=== PATIENT | female | born 1955 | race Hispanic/Latino ===

== ENCOUNTER 2022-10-20 10:47 | Observation (INO) | payer OTHER ==
--- NOTE | 2022-10-20 11:59 | RAD REPORT ---
EXAM DESCRIPTION: CT - Head Brain Wo Cont - 10/20/2022 11:23 am CLINICAL HISTORY: Left hand numbness COMPARISON: None TECHNIQUE: Computed axial tomography of the head was obtained. IV contrast was not requested. All CT scans are performed using dose optimization technique as appropriate and may include automated exposure control or mA/KV adjustment according to patient size. FINDINGS: An intracranial bleed is not seen . The ventricles are normal in caliber. No extra-axial fluid collection is noted. Marked low-density areas within periventricular, deep and subcortical white matter Small low-density area left basal ganglia Fluid within the sinuses/ mastoids is not seen. IMPRESSION: Marked low-density areas within periventricular, deep and subcortical white matter bilat erally. This could be secondary to a demyelinating process or ischemic changes secondary to small ves brianna disease. Small low-density area left basal ganglia. This may represent a lacunar infarct of indeterminate age It is recommended that the patient have an MRI of the brain with contrast to further evaluate these f indings
[2022-10-20 13:26] LABS: Absolute Lymphocytes (CBC) 2.3 K/uL (0.7-4.9); Hematocrit 40.8 % (36.0-45.0); Lymphocytes % 31.5 % (15.3-44.8); MCV 81.2 fL (80-100); MPV 7.9 fL (7.6-11.3); RBC Red Blood Cell Count 5.03 M/uL (3.86-4.86)
--- NOTE | 2022-10-20 13:39 | EDPHYS ---
Physician Documentation [facility] Name: Nicol Max Age: 66 yrs Sex: Female : 1955 Arrival Date: 10/20/2022 Time: 10:49 Bed 28 Private MD: Andrae Lr F; Gabino Real H ED Physician Kesha Rodriguez HPI: 10/20 11:10 This 66 yrs old Female presents to ER via Ambulatory with complaints of sd2 Numbness. 11:10 66 yo F presents with CC of L hand paresthesia. She reports she initially started with sd2 a pins and needles sensation to her left hand at the 4th and 5th digits that started Tuesday while watching Netflix. She reports it has spread to include the entire palmar surface of her hand but is not affecting the dorsal aspect. Denies any known injury, trauma or repetitive overuse injuries. Denies CP or SOB. She is left-handed but has not experienced this previously. No weakness. Pt was sent by Dr. Real, her PCP to Neurology, Dr. Lr, whose office recommended she come to the ER to rule out a stroke and if discharged, they would see her in clinic before 4PM today for follow up.. Historical: - Allergies: 10:54 No Known Allergies; ll1 - PMHx: 10:54 Hypertensive disorder; ll1 - PSHx: 10:54 tubal ligation; ll1 - Immunization history:: Client reports receiving the 2nd dose of the Covid vaccine. - Social history:: Smoking status: Patient denies any tobacco usage or history of. ROS: 11:10 Constitutional: Negative for fever, chills, and weight loss, Eyes: Negative for injury, sd2 pain, redness, and discharge, Cardiovascular: Negative for chest pain, palpitations, and edema, Respiratory: Negative for shortness of breath, cough, wheezing. Abdomen/GI: Negative for abdominal pain, nausea, vomiting, diarrhea. MS/Extremity: Negative for injury and deformity, Skin: Negative for injury, rash, and discoloration, Neuro: Negative for headache, numbness and positive for tingling. Exam: 11:10 Constitutional: This is a well developed, well nourished patient who is awake, alert, sd2 and in no acute distress. Head/Face: Normocephalic, atraumatic. Eyes: EOMI, normal conjunctiva bilaterally Chest/axilla: Normal chest wall appearance and motion. Nontender with no deformity. Cardiovascular: Regular rate and rhythm with a normal S1 and S2. No gallops, murmurs, or rubs. 2+ distal pulses. Respiratory: Lungs have equal breath sounds bilaterally, clear to auscultation and percussion. No rales, rhonchi or wheezes noted. No increased work of breathing, no retractions or nasal flaring. Abdomen/GI: Soft, non-tender, with normal bowel sounds. No guarding or rebound. No evidence of tenderness throughout. Skin: Warm, dry with normal turgor. Normal color with no rashes, no lesions, and no evidence of cellulitis. MS/ Extremity: Pulses equal, no cyanosis. Neurovascular intact. Full, normal range of motion. Ambulatory without difficulty. Neuro: Awake and alert, GCS 15, oriented to person, place, time, and situation. Cranial nerves II-XII grossly intact. Motor strength 5/5 in all extremities. Sensory grossly intact. Normal gait. Psych: Awake, alert, with orientation to person, place and time. Behavior, mood, and affect are within normal limits. Vital Signs: 10:55 BP 157 / 95; Pulse 85; Resp 16; Temp 97.4; Pulse Ox 98% ; Weight 90.72 kg; Height 5 ft. ll1 6 in. (167.64 cm); Pain 0/10; 13:55 BP 109 / 78; Pulse 72; Resp 16; Pulse Ox 98% on R/A; eh3 14:54 BP 126 / 79; Pulse 75; Resp 16; Pulse Ox 99% on R/A; eh3 15:55 BP 118 / 65; Pulse 76; Resp 15; Pulse Ox 98% on R/A; eh3 16:55 BP 116 / 93; Pulse 75; Resp 16; Pulse Ox 98% on R/A; eh3 18:00 BP 139 / 85; Pulse 77; Resp 18; Pulse Ox 99% on R/A; eh3 19:00 BP 139 / 91; Pulse 78; Resp 20; Pulse Ox 98% on R/A; eh3 10:55 Body Mass Index 32.28 (90.72 kg, 167.64 cm) ll1 MDM: 11:10 Differential diagnosis: Paresthesia, peripheral neuropathy, electrolyte abnormality, sd2 doubt CVA among others. Data reviewed: vital signs, nurses notes. 13:01 Patient medically screened. sd2 13:25 Data reviewed: radiologic studies. Transition of care: After a detail discussion of the sd2 patient's case, care is transferred to Akilah Charlton [facility] ED course: Labs pending. CT abnormal. Pt will need admission and further stroke workup. Care of patient signed over to Akilah Charlton NP, with plan for admission following labs.. 13:45 Physician consultation: Andrae Lr MD was contacted at 13:30, regarding consult, snw would like further tests performed, MRI, Without and with contrast. 13:46 Physician consultation: Mitch Ibanez MD was contacted at 13:46, regarding admission, snw to the telemetry unit. 13:50 Special discussion: pt relays records from [place], + covid in Dec 12. Flew to [place] in snw Aug, Returned here in Sep. Flew to [place] to see her Daughter. Pt had some numbness, tingling to left fourth and fifth fingers, now left hand, s/s became constant. Pt flew home from [place] yesterday to see PCP, Neuro here in town.. 10/20 11:10 Order name: CBC with Diff; Complete Time: 13:32 sd2 10/20 11:10 Order name: CMP; Complete Time: 13:50 sd2 10/20 11:10 Order name: Magnesium; Complete Time: 13:50 sd2 10/20 11:10 Order name: Troponin High Sensitivity; Complete Time: 13:50 sd2 10/20 15:23 Order name: SARS-COV-2 Antigen Rapid bd 10/20 16:11 Order name: SARS-COV-2 Antigen Rapid; Complete Time: 16:18 EDMS 10/20 11:10 Order name: EKG - Nurse/Tech; Complete Time: 14:04 sd2 10/20 11:10 Order name: CT Head Brain wo Cont; Complete Time: 13:00 sd2 10/20 19:26 Order name: Phosphorus; Complete Time: 19:27 EDMS 10/20 19:26 Order name: NT PRO-BNP; Complete Time: 19:27 EDMS 10/20 19:26 Order name: T4 Free; Complete Time: 19:27 EDMS 10/20 19:26 Order name: Magnesium; Complete Time: 19: EDMS 10/20 19:26 Order name: Thyroid Stimulating Hormone; Complete Time: 19: EDMS 10/20 21:54 Order name: Urinalysis; Complete Time: 00:12 EDMS EC:59 Rate is 73 beats/min. Rhythm is regular. QRS interval is prolonged. T waves are snw Inverted in lead aVL. ST Segment is elevated in lead aVR. Clinical impression: NSR w/ Non-specific ST/T Changes. Administered Medications: No medications were administered Disposition Summary: 10/20/22 13:39 Hospitalization Ordered Hospitalization Status: Observation snw Provider: Mitch Ibanez snw Location: Telemetry/MedSurg (observation) snw Condition: Stable snw Problem: new snw Symptoms: are unchanged snw Bed/Room Type: Standard snw Room Assignment: 222(10/20/22 21:33) cg Diagnosis - FOCAL NEUROLOGICAL CHANGES snw Forms: - Medication Reconciliation Form snw - SBAR form snw Signatures: Dispatcher [employer] EDID Akilah Charlton, NORBERT-C CHUTE LOADER-Csnw Martine Coleman RN RN cg [facility] RN RN 1 Kesha Rodriguez MD MD sd2 Corrections: (The following items were deleted from the chart) 11:13 11:10 66 yo F presents with CC of L hand paresthesia. She reports she initially started sd2 with a pins and needles sensation to her left hand at the 4th and 5th digits that started Tuesday while watching Netflix. She reports it has spread to include the entire palmar surface of her hand but is not affecting the dorsal aspect. Denies any known injury, trauma or repetitive overuse injuries. Denies CP or SOB. She is left-handed but has not experienced this previously. No weakness.. sd2 21:33 13:39 snw cg
--- NOTE | 2022-10-20 13:39 | ER ---
Nurse's Notes [facility] Name: Nicol Max Age: 66 yrs Sex: Female : 1955 Arrival Date: 10/20/2022 Time: 10:49 Bed 28 Private MD: Andrae Lr F; Gabino Real H Diagnosis: FOCAL NEUROLOGICAL CHANGES Presentation: 10/20 10:55 Chief complaint: Patient states: L arm started tingling Tuesday, has gotten worse since. ll1 + fatigue. Dr. Real told her to come get checked,. Coronavirus screen: Vaccine status: Patient reports receiving the 2nd dose of the covid vaccine. Client denies travel out of the [place] in the last 14 days. At this time, the client does not indicate any symptoms associated with coronavirus-19. Ebola Screen: Patient denies travel to an Ebola-affected area in the 21 days before illness onset. Initial Sepsis Screen: Does the patient meet any 2 criteria? No. Patient's initial sepsis screen is negative. Does the patient have a suspected source of infection? No. Patient's initial sepsis screen is negative. Risk Assessment: Do you want to hurt yourself or someone else? Patient reports no desire to harm self or others. Onset of symptoms was October 18, 2022. 10:55 Method Of Arrival: Ambulatory ll1 10:55 Acuity: JACKSON 2 ll1 Triage Assessment: 11:00 General: Appears in no apparent distress. Behavior is cooperative, appropriate for age. ll1 Pain: Denies pain. Neuro: No deficits noted. Cardiovascular: Reports fatigue. Musculoskeletal: Circulation, motion, and sensation intact. Capillary refill < 3 seconds, Reports numbness in left arm. Historical: - Allergies: 10:54 No Known Allergies; ll1 - PMHx: 10:54 Hypertensive disorder; ll1 - PSHx: 10:54 tubal ligation; ll1 - Immunization history:: Client reports receiving the 2nd dose of the Covid vaccine. - Social history:: Smoking status: Patient denies any tobacco usage or history of. Screenin:55 Abuse screen: Denies threats or abuse. Denies injuries from another. Nutritional eh3 screening: No deficits noted. Tuberculosis screening: No symptoms or risk factors identified. Fall Risk None identified. Assessment: 13:55 General: Appears distressed, uncomfortable, Behavior is cooperative, appropriate for eh3 age, anxious. Pain: Denies pain. Neuro: Level of Consciousness is awake, alert, obeys commands, Oriented to person, place, time, situation. Cardiovascular: Capillary refill < 3 seconds Patient's skin is warm and dry. Respiratory: Airway is patent Respiratory effort is even, unlabored, Respiratory pattern is regular, symmetrical. GI: No signs and/or symptoms were reported involving the gastrointestinal system. Abdomen is round non-distended. : No signs and/or symptoms were reported regarding the genitourinary system. EENT: No signs and/or symptoms were reported regarding the EENT system. Derm: No signs and/or symptoms reported regarding the dermatologic system. Musculoskeletal: Range of motion: intact in all extremities, Reports numbness in left hand. 14:54 Reassessment: Patient and/or family updated on plan of care and expected duration. Pain eh3 level reassessed. Patient is alert, oriented x 3, equal unlabored respirations, skin warm/dry/pink. 15:55 Reassessment: Patient and/or family updated on plan of care and expected duration. Pain eh3 level reassessed. Patient is alert, oriented x 3, equal unlabored respirations, skin warm/dry/pink. 16:55 Reassessment: Patient and/or family updated on plan of care and expected duration. Pain eh3 level reassessed. Patient is alert, oriented x 3, equal unlabored respirations, skin warm/dry/pink. 17:55 Reassessment: Patient and/or family updated on plan of care and expected duration. Pain eh3 level reassessed. Patient is alert, oriented x 3, equal unlabored respirations, skin warm/dry/pink. 19:00 Reassessment: Patient and/or family updated on plan of care and expected duration. Pain eh3 level reassessed. Patient is alert, oriented x 3, equal unlabored respirations, skin warm/dry/pink. Vital Signs: 10:55 BP 157 / 95; Pulse 85; Resp 16; Temp 97.4; Pulse Ox 98% ; Weight 90.72 kg; Height 5 ft. ll1 6 in. (167.64 cm); Pain 0/10; 13:55 BP 109 / 78; Pulse 72; Resp 16; Pulse Ox 98% on R/A; eh3 14:54 BP 126 / 79; Pulse 75; Resp 16; Pulse Ox 99% on R/A; eh3 15:55 BP 118 / 65; Pulse 76; Resp 15; Pulse Ox 98% on R/A; eh3 16:55 BP 116 / 93; Pulse 75; Resp 16; Pulse Ox 98% on R/A; eh3 18:00 BP 139 / 85; Pulse 77; Resp 18; Pulse Ox 99% on R/A; eh3 19:00 BP 139 / 91; Pulse 78; Resp 20; Pulse Ox 98% on R/A; eh3 10:55 Body Mass Index 32.28 (90.72 kg, 167.64 cm) ll1 ED Course: 10:49 Patient arrived in ED. as 10:57 Triage completed. ll1 10:57 Arm band placed on. ll1 10:59 Kesha Rodriguez MD is Attending Physician. sd2 11:25 CT Head Brain wo Cont In Process Unspecified. EDMS 13:01 Mel Han, RN is Primary Nurse. iw 13:24 Akilah Charlton FNP-C is PHCP. snw 13:27 Mel Han, RN is Primary Nurse. iw 13:27 Inserted saline lock: 20 gauge in right antecubital area, using aseptic technique. iw Blood collected. 13:38 Pete Doshi is Hospitalizing Provider. snw 13:38 Hospitalizing Provider role handed off by Pete Doshi snw 13:38 Mitch Ibanez MD is Hospitalizing Provider. snw 13:55 Patient has correct armband on for positive identification. Placed in gown. Bed in low eh3 position. Call light in reach. Side rails up X2. Adult w/ patient. Client placed on continuous cardiac and pulse oximetry monitoring. NIBP monitoring applied. Door closed. Noise minimized. Lights dimmed. Warm blanket given. 14:54 Diet: Patient given snack. Patient given water. Tolerated well. eh3 16:17 SARS-COV-2 Antigen Rapid Sent. eh3 18:30 Andrae Lr MD is Private Physician. eh3 18:30 Gabino Real MD is Private Physician. eh3 19:00 No provider procedures requiring assistance completed. Patient admitted, IV remains in eh3 place. Administered Medications: No medications were administered Medication: 19:00 VIS not applicable for this client. eh3 Outcome: 13:39 Decision to Hospitalize by Provider. snw 19:00 Admitted to ER Hold. Please see [facility] for further documentation. eh3 19:00 Condition: stable 19:00 Instructed on the need for admit. 22:09 Patient left the ED. eh3 Signatures: Dispatcher [employer] EDMS Akilah Charlton, NORBERT-C FACING MACHINE OPERATOR-CsnAlycia Ramesh Irene, RN RN [facility] RN RN 1 Fely Jeff RN RN 3 Kesha Rodriguez MD MD sd2 Corrections: (The following items were deleted from the chart) 20:53 20:00 Reassessment: Patient and/or family updated on plan of care and expected eh3 duration. Pain level reassessed. Patient is alert, oriented x 3, equal unlabored respirations, skin warm/dry/pink. eh3
[2022-10-20 13:48] LABS: Albumin 3.4 g/dL (3.4-5.0); Bilirubin Total 0.5 mg/dL (0.2-1.0); Magnesium 2.1 mg/dL (1.8-2.4); Potassium 3.8 mmol/L (3.5-5.1); Protein, Total 7.6 g/dL (6.4-8.2); Troponin High Sensitivity 6.5 pg/mL (<58.9)
[2022-10-20] MEDS ORDERED: ACETAMINOPHEN 325 MG TABLET PO PRN (15:15)
[2022-10-20] MEDS ORDERED: HYDROCODONE/APAP 5/325 MG TAB PO PRN (15:15)
[2022-10-20] MEDS ORDERED: ONDANSETRON 4 MG/2 ML VIAL IV PRN (15:29)
--- NOTE | 2022-10-20 15:31 | P.HP ---
Certification for Inpatient Patient admitted to: Observation With expected LOS: <2 Midnights Patient will require the following post-hospital care: None Practitioner: I am a practitioner with admitting privileges, knowledge of patient current condition, hospital course, and medical plan of care. Services: Services provided to patient in accordance with Admission requirements found in Title 42 Section 412.3 of the Code of Federal Regulations <Jennifer Reno - Last Filed: 10/20/22 19:58> Patient History Date of Service: 10/20/22 Reason for admission: left hand paresthesia History of Present Illness: Patient is a 66-year-old female with a past medical history significant for hypertension, obesity who presents with complaint of left hand numbness tingling onset 3 days ago. Patient also reports shortness of breath with exertion that has been going on for the past couple of months. Patient denies any other si gns and symptoms. Symptoms are aggravated or relieved by nothing. Patient reported that she followed up with her PCP who sent her to a neurologist and patient was advised to come to the ER for further evaluation. Patient decided to present to the ER was directed by her neurologist. - Past Medical/Surgical History -: HTN -: Obesity Past Surgical History: Reviewed- Non-Contributory - Family History Family History: Reviewed- Non-Contributory - Social History Smoking Status: Former smoker Alcohol use: Yes CD- Drugs: No Caffeine use: Yes Place of Residence: Home <Jennifer Reno - Last Filed: 10/20/22 19:58> Date of Service: 10/21/22 <Mitch Ibanez - Last Filed: 10/21/22 13:03> Allergies No Known Allergies Allergy (Unverified 10/20/22 18:34) Home Medications: Aspirin Chewable [Aspirin Chewable*] 81 mg PO DAILY #30 tab.chew 10/21/22 Atorvastatin Calcium [Lipitor] 40 mg PO BEDTIME #30 tab 10/21/22 Review of Systems General: Unremarkable Eyes: Unremarkable ENT: Unremarkable Respiratory: SOB with Excertion Cardiovascular: Unremarkable Gastrointestinal: Unremarkable Genitourinary: Unremarkable Musculoskeletal: Unremarkable Integumentary: Unremarkable Neurological: Numbness, Other <Jennifer Reno - Last Filed: 10/20/22 19:58> Physical Examination - Physical Exam General: Alert, In no apparent distress, Oriented x3, Cooperative HEENT: Atraumatic, PERRLA, Mucous membr. moist/pink, EOMI, Sclerae nonicteric Neck: Supple, 2+ carotid pulse no bruit, No LAD, Without JVD or thyroid abnormality Respiratory: Clear to auscultation bilaterally, Normal air movement Cardiovascular: No edema, Regular rate/rhythm, Normal S1 S2 Capillary refill: <2 Seconds Gastrointestinal: Normal bowel sounds, Soft and benign, No tenderness Musculoskeletal: No clubbing, No swelling, No tenderness Integumentary: No rashes, No breakdown, No significant lesion Neurological: Normal gait, Normal speech, Normal strength at 5/5 x4 extr, Normal tone, Normal affect Lymphatics: No axilla or inguinal lymphadenopathy - Studies Laboratory Data (last 24 hrs) 10/20/22 13:17: Sodium 138, Potassium 3.8, BUN 16, Creatinine 0.89, Glucose 94, Magnesium 2.1, Total Bilirubin 0.5, AST 18, ALT 21, Alkaline Phosphatase 79 10/20/22 13:17: WBC 7.20, Hgb 13.5, Hct 40.8, Plt Count 260 <Jennifer Reno - Last Filed: 10/20/22 19:58> - Studies Laboratory Data (last 24 hrs) 10/20/22 13:17: Sodium 138, Potassium 3.8, BUN 16, Creatinine 0.89, Glucose 94, Magnesium 2.1, Total Bilirubin 0.5, AST 18, ALT 21, Alkaline Phosphatase 79 10/20/22 13:17: WBC 7.20, Hgb 13.5, Hct 40.8, Plt Count 260 <Mitch Ibanez - Last Filed: 10/21/22 13:03> Assessment and Plan - Plan --Suspected CVA. CT brain indicates findings worrisome for a demyelinating process and a lacunar infarct of indeterminate age. MRI brain for further evaluation. Neurology consulted. Continue aspirin and statin. Will await further recommendation from neurologist -- Left arm paresthesia. MRI brain pending. Continue supportive care. --Hypertension. Will allow for permissive hypertension pending CVA rule out. Labetalol as needed for SBP greater than 200 mmHg. We will continue to monitor blood pressure levels. --Class I obesity. Likely secondary to excess calories intake. Patient counseled on weight reduction, diet and exercise therapy. --CKD 2. Stable. Continue to monitor renal functions. --DVT prophylaxis with Lovenox subQ. Discharge Plan: Home - Advance Directives Does patient have a Living Will: No Does patient have a Durable POA for Healthcare: Yes - Code Status/Comfort Care Code Status Assessed: Yes Physician Review: Patient Assessed, Agree with Above Assessment and Plan Critical Care: No <Jennifer Reno E - Last Filed: 10/20/22 19:58>
[2022-10-20] MEDS: ENOXAPARIN 40 MG/0.4 ML SQ SCH (16:00)
[2022-10-20 16:11] LABS: SARS-CoV-2 Antigen Rapid Res Negative (Negative)
[2022-10-20] MEDS: ASPIRIN 81 MG CHEWABLE TABLET PO SCH (17:00)
[2022-10-20 19:26] LABS: Magnesium 2.1 mg/dL (1.8-2.4); Phosphorus 3.1 mg/dL (2.5-4.9); Thyroid Stimulating Hormone 2.01 uIU/mL (0.360-3.740)
[2022-10-20 19:30] VITALS: BMI 32.3
[2022-10-20] MEDS ORDERED: LABETALOL 20 MG/4ML SYRINGE IV PRN (19:56)
[2022-10-20] MEDS ORDERED: ATORVASTATIN 40 MG TAB PO SCH (21:00)
[2022-10-20 21:54] LABS: Specific Gravity 1.011 (1.005-1.030); Urine Bilirubin NEGATIVE (Negative); Urine Blood Negative (Negative); Urine Clarity Clear (Clear); Urine Color Light-Yellow (Yellow); Urine Glucose NEGATIVE (Negative); Urine Protein NEGATIVE (Negative); Urine RBC <5 /HPF (None Seen); Urine Urobilinogen Normal (Normal); Urine pH 6.5 (5.0-7.0)
[2022-10-21 04:50] LABS: Absolute Lymphocytes (CBC) 2.9 K/uL (0.7-4.9); Hematocrit 38.6 % (36.0-45.0); Lymphocytes % 38.5 % (15.3-44.8); MCV 81.1 fL (80-100); MPV 8.2 fL (7.6-11.3); RBC Red Blood Cell Count 4.76 M/uL (3.86-4.86)
[2022-10-21 05:06] LABS: Potassium 4.1 mmol/L (3.5-5.1)
--- NOTE | 2022-10-21 08:00 | RAD REPORT ---
EXAM DESCRIPTION: MRI - Brain W/Wo Cont - 10/21/2022 7:47 am CLINICAL HISTORY: Left hand numbness COMPARISON: head CT October 20, 2022 TECHNIQUE: Axial, sagittal, and coronal magnetic images of the brain were obtained. 20 cc MultiHance administered intravenously FINDINGS: Marked signal within periventricular, deep and subcortical white matter. 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 Diffusion-weighted/ ADC mapping sequences do not demonstrate evidence of an acute infarction. An extra-axial fluid collection is not noted. Fluid within the sinuses/mastoids is not seen IMPRESSION: Marked signal within periventricular, deep and subcortical white matter may be secondary to a demyelinating process. There is no enhancement to suggest acuity. Another consideration is that this is secondary to ischemic changes secondary to small vessel disease
[2022-10-21 08:47] VITALS: O2SAT 99
[2022-10-21] MEDS: ENOXAPARIN 40 MG/0.4 ML SQ SCH (09:00)
[2022-10-21] MEDS: ASPIRIN 81 MG CHEWABLE TABLET PO SCH (09:00)
[2022-10-21 12:52] VITALS: BP 119/63; TEMP 97
--- NOTE | 2022-10-21 13:14 | P.DS ---
Discharge Date: 10/21/22 Disposition: ROUTINE DISCHARGE Discharge Condition: GOOD Reason for Admission: left hand paresthesia Brief History of Present Illness: Patient is a 66-year-old female with a past medical history significant for hypertension, obesity who presents with complaint of left hand numbness tingling onset 3 days ago. Patient also reports shortness of breath with exertion that has been going on for the past couple of months. Patient denies any other signs and symptoms. Symptoms are aggravated or relieved by nothing. Patient reported that she followed up with her PCP who sent her to a neurologist and patient was advised to come to the ER for further evaluation. Patient decided to present to the ER was directed by her neurologist. Hospital Course: Patient is clinically doing better. Symptoms have improved. However she still having some numbness and tingling in that left hand. At this time, patient is stable for discharge with outpatient follow-up. Vital Signs/Physical Exam: Temp Pulse Resp BP Pulse Ox 97.0 F 73 16 119/63 94 10/21/22 12:00 10/21/22 12:00 10/21/22 12:00 10/21/22 12:00 10/21/22 12:00 General: Alert, In no apparent distress, Oriented x3 Laboratory Data at Discharge: WBC 7.60 K/uL (4.3-10.9) 10/21/22 04:01 Hgb 12.7 g/dL (12.0-15.0) 10/21/22 04:01 Hct 38.6 % (36.0-45.0) 10/21/22 04:01 Plt Count 236 K/uL (152-406) 10/21/22 04:01 Sodium 138 mmol/L (136-145) 10/21/22 04:01 Potassium 4.1 mmol/L (3.5-5.1) 10/21/22 04:01 BUN 16 mg/dL (7-18) 10/21/22 04:01 Creatinine 0.84 mg/dL (0.55-1.3) 10/21/22 04:01 Glucose 103 mg/dL (74-106) 10/21/22 04:01 Phosphorus 3.1 mg/dL (2.5-4.9) 10/20/22 18:16 Magnesium 2.1 mg/dL (1.8-2.4) 10/20/22 18:16 Total Bilirubin 0.5 mg/dL (0.2-1.0) 10/20/22 13:17 AST 18 U/L (15-37) 10/20/22 13:17 ALT 21 U/L (12-78) 10/20/22 13:17 Alkaline Phosphatase 79 U/L (45-117) 10/20/22 13:17 Triglycerides 202 mg/dL (<150) H 10/21/22 04:01 Cholesterol 250 mg/dL (<200) H 10/21/22 04:01 HDL Cholesterol 46 mg/dL (40-60) 10/21/22 04:01 Cholesterol/HDL Ratio 5.43 10/21/22 04:01 Home Medications: Aspirin Chewable [Aspirin Chewable*] 81 mg PO DAILY #30 tab.chew 10/21/22 Atorvastatin Calcium [Lipitor] 40 mg PO BEDTIME #30 tab 10/21/22 New Medications: Aspirin Chewable [Aspirin Chewable*] 81 mg PO DAILY #30 tab.chew Atorvastatin Calcium [Lipitor] 40 mg PO BEDTIME #30 tab Physician Discharge Instructions: -DC IV and DC home -Follow-up with PCP in 1 to 2 weeks -Follow-up with Neurology in 1 to 2 weeks -Please call Dr. Ibanez at [phone] if any questions regarding hospital stay -Please call nursing station at [phone] if any nursing or medication questions -Return to the emergency room if symptoms worsen-DC IV and DC home Diet: AHA Activity: Fall precautions Followup: NONE,NONE [Primary Care Provider] - Time spent managing pt's care (in minutes): 35
--- NOTE | 2022-10-21 13:22 | EKG ---
Test Date: 2022-10-20 Test Time: 13:57:58 Hand Decorator: HA MEASUREMENT RESULTS: Intervals: Rate: 73 WV: 168 QRSD: 98 QT: 396 QTc: 436 [place]: P: 64 WV: 168 QRS: 2 T: 56 INTERPRETIVE STATEMENTS: Normal sinus rhythm Low voltage QRS Incomplete right bundle branch block Cannot rule out Anterior infarct, age undetermined Abnormal ECG No previous ECG available for comparison Electronically Signed On 10-21-22 13:21:48 TEXTILE BROKER by Po [employer]
--- NOTE | 2022-10-21 14:59 | ECHO ---
HEIGHT: 5 ft 6 in WEIGHT: 200 lb 0.054 oz DATE OF STUDY: 10/21/[address]: 2-DIMENSIONAL: YES M.MODE: YES DOPPLER: YES COLOR FLOW: YES TDS: PORTABLE: YES DEFINITY: BUBBLE STUDY: DIAGNOSIS: SHORTNESS OF BREATH WITH EXACRBATION CARDIAC HISTORY: CATHERIZATION: NO SURGERY: NO PROSTHETIC VALVE: NO PACEMAKER: NO MEASUREMENTS (cm) DIASTOLIC (NORMALS) SYSTOLIC (NORMALS) IVSd 1.2 (0.6-1.2) LA Diam 2.7 (1.9-4.0) LVEF 54% LVIDd 3.7 (3.5-5.7) LVIDs 2.7 (2.0-3.5) %FS 27% LVPWd 1.3 (0.6-1.2) Ao Diam 2.8 (2.0-3.7) 2 DIMENSIONAL ASSESSMENT: RIGHT ATRIUM: NORMAL LEFT ATRIUM: NORMAL RIGHT VENTRICLE: NORMAL LEFT VENTRICLE: MILD LEFT VENTRICULAR HYPERTROPHY TRICUSPID VALVE: MILD TRICUSPID REGURGITATION MITRAL VALVE: NORMAL PULMONIC VALVE: NORMAL AORTIC VALVE: NORMAL PERICARDIAL EFFUSION: NONE AORTIC ROOT: NORMAL LEFT VENTRICULAR WALL MOTION: POOR WINDOWS DOPPLER/COLOR FLOW: MILD TRICUPSID REGURGITAITON COMMENTS: 1. POOR WINDOWS 2. LEFT VENTRICULAR APPEARS OVERALL NORMAL 3. MILD CONCENTRIC LEFT VENTRICULAR HYPERTROPHY 4. DIASTOLIC DYSFUNCTION (GRADE I) 5. NORMAL RIGHT VENTRICULAR SYSTOLIC PRESSURE TECHNOLOGIST: JOSE WALLER
--- NOTE | 2022-10-21 19:57 | CON ---
Reason For Consultation: Consultation called because of left hand tingling and numbness. History Of Present Illness: Ms. Max is a 66-year-old right-handed patient with hypert ension and obesity who comes to [facility] with 3 to 5 days worth of intermittent tingling, pins and needles sensations with numbness in the left 4th and 5th digits and at times the left hand. She recently took a long plane ride and also was lying a lot on the left side with her arm flexed to wards her face. She noted the pain first in the left 5th digit and that it spreads to the ring finge r and appeared to spread further. The pain tended to run down the medial left forearm. She saw a ga stroenterologist, Dr. Nelson Real and he called myself neurologist and discussed the patient, but at the time his report was there was progressive left hand numbness and possibly dyspnea on exertion. The patient was not initially seen, but was sent to the emergency room for further evaluation. There she was evaluated for stroke by head CT scan, which showed marked low-density areas in the periventr icular subcortical white matter, likely secondary to small vessel disease versus demyelinating proces s. Further a low-density area was seen in the left basal ganglia, which may represent a lacunar infa rct of indeterminate age. A brain MRI was done the following day, which is today and that study show ed marked signal abnormalities in the periventricular deep and subcortical white matter secondary to note a possible demyelinating process versus small vessel ischemic disease. There was no acute infar ction identified. The patient's symptoms have been fluctuating since her hospital admission. Past Medical History: As noted. Family History: Noncontributory. Social History: Smoked and drank alcohol in the past. No IV drug use. Allergies: NO KNOWN DRUG ALLERGIES. Medications: Aspirin 81 mg daily and Lipitor 40 mg at bedtime. Review of Systems: As noted, numbness in the left hand that is progressive, intermittent and some occasional shortness o f breath with exertion. Otherwise, negative for dermatological issues, genitourinary, gastrointestin al, or other positives on a 10 point systems review. Physical Examination: Vital Signs: Blood pressure 119/63, pulse 73, respiratory rate 16, temperature 97.8, and oxygen satu ration 99% room air. Weight 200 pounds, height 5 feet 6 inches, BMI 32. General: Ms. Max is lying in her hospital bed, in no acute distress. HEENT: She is normocephalic, atraumatic. Sclerae anicteric. Oropharynx is pink and moist. Neck: Supple. Chest: Clear. Heart: Regular. Extremities: No edema, cyanosis, OR clubbing. Neurologic: Alert and oriented to person, place, time, and situation. Follows all commands appropri ately. Cranial nerves 2 through 12 show no deficits. On motor examination in the upper and lower ex tremities, she has no focal deficits. On sensory examination in the left lower extremity, she has nu mbness, tingling, and dysesthesia in the left ulnar distribution with positive Tinel's and Phalen's a t the left elbow. No other abnormal sensory exam findings. Her coordination is intact in the upper and lower extremities. Her reflexes are symmetric in upper and lower extremities. Gait with normal stance and right arm swing. Laboratory Studies: Complete blood count with differential is unremarkable. Basic metabolic panel u nremarkable. Her beta natriuretic peptide is slightly elevated at 181. Triglycerides are elevated t o 202, total cholesterol 250, LDL cholesterol 164, HDL 46. TSH 2.01, free T4 0.94. Urinalysis shows 25+ esterase and trace budding yeasts. COVID testing is negative. Echocardiogram shows ejection fr action of 54%, mild concentric left ventricular hypertrophy with grade 1 diastolic dysfunction, and n ormal right ventricular systolic pressure. Her electrocardiogram shows normal sinus rhythm, low volt age QRS, incomplete right bundle-branch block, cannot rule out anterior infarct, age undetermined. Assessment: Ms. Max is a 66-year-old patient with left ulnar entrapment at the elbow for cubit al tunnel syndrome. She has no evidence of acute stroke. However, she does have extensive evidence of possible small vessel ischemic disease versus a demyelinating process. She is on aspirin and has dyslipidemia and is on statin. She has controlled blood pressures. Plan: She may be discharged home on aspirin 81 mg daily. She may have outpatient lumbar puncture to rule out multiple sclerosis and may consider evoked potential studies as well. The patient may foll ow up within the month in Dr. Lr's office. WAYNE/WAQAS Voice ID: [id number] Report ID: [id number]
== END 2022-10-21 14:29 | disposition home or self-care (01) ==
LOC: ER 10:47 → ERHOLD 15:08 → 2ND 22:10
PROVIDERS: ADMIT Hospitalist; ATTEND Hospitalist
DX: G56.22 Lesion of ulnar nerve, left upper limb (principal); R20.2 Paresthesia of skin; I10 Essential (primary) hypertension; E66.9 Obesity, unspecified; R06.02 Shortness of breath; N18.2 Chronic kidney disease, stage 2 (mild); Z20.822 Contact with and (suspected) exposure to COVID-19
CPT/HCPCS: 36415; 70450; 70553; 80048; 80053; 80061; 81001; 83735; 83880; 84100; 84439; 84443; 84484; 85025; 87811; 93005; 93306; 99285; A9577; G0378; J1650